=== PATIENT | female | born 1995 | race Caucasian/White ===

== ENCOUNTER 2020-11-09 14:16 | Outpatient (REF) | payer OTHER, SELFPAY ==
--- NOTE | ~2020-11-09 | XR_ITS ---
EXAMINATION: XR LUMBOSACRAL SPINE CLINICAL INFORMATION: Low back pain. COMPARISON: None TECHNIQUE: Three views of the lumbosacral spine. FINDINGS: The vertebral bodies and posterior elements are normal. The disc spaces are preserved and the vertebral alignment is normal. The paraspinal soft tissues are normal. XR/XR lumbar spine 2-3V IMPRESSION: No acute abnormalities. If pain persists, consider further evaluation with a different imaging modality such as CT or MR if clinically indicated.
== END 2020-11-09 14:17 | disposition home or self-care (01) ==
LOC: HO.HMGCX 14:16
PROVIDERS: PCP Nurse Practitioner Family; Visit Provider Nurse Practitioner Family
DX: M54.5 Low back pain (principal)
CPT/HCPCS: 72100

== ENCOUNTER 2021-01-11 12:12 | Outpatient (REF) | payer OTHER, SELFPAY ==
[2021-01-11 14:06] LABS: MANUAL DIFF FLAG NO
[2021-01-11 14:11] LABS: Basophils Percent Auto 0.5 % (0-2); Eosinophils Percent Auto 0.5 % (0-4); Hematocrit 38.2 % (37.0-47.0); Hemoglobin 12.6 g/dl (12.0-16.0); Imm Gran Abs Auto 0.01 X10*3/uL (0.00-0.03); Imm Gran Pct Auto 0.2 % (0.0-0.4); Lymphocytes Absolute Auto 1.9 X10*3/uL (1.2-4.9); Lymphocytes Percent Auto 30.3 % (20-40); Mean Platelet Volume 10.2 fL (9.4-12.3); Monocytes Absolute Auto 0.4 X10*3/uL (0.1-1.2); Monocytes Percent Auto 7.2 % (2-11); Neutrophils Absolute Auto 3.8 x10*3/uL (2.0-8.3); Neutrophils Percent Auto 61.3 % (45-73); Platelet Count 272 X10*3/uL (160-400); White Blood Count 6.1 X10*3/uL (4.8-10.8)
[2021-01-11 14:29] LABS: Appearance Urine CLOUDY; Color Urine YELLOW; Glucose Urine UA NEG (NEG); Leukocyte Esterase Urine NEG (NEG); Nitrite Urine NEG (NEG); Specific Gravity - Urine >= 1.030 (1.005-1.025); UACC Culture Trigger NO; Urine Blood TRACE (NEG); Urine Ketones NEG (NEG); Urine Protein TRACE MG/DL (NEG-TRACE)
[2021-01-11 14:43] LABS: Amorphous Sediment Urine 3+ /LPF; RBC Urine 0 /HPF (0); WBC Urine 0 /HPF (0-4)
[2021-01-11 14:52] LABS: Alanine Aminotransferase 41 U/L (0-31); Albumin Level 4.8 g/dL (3.5-5.0); Alkaline Phosphatase 65 U/L (39-117); Anion Gap 15 (12-20); Aspartate Amino Transferase 29 U/L (5-31); Bilirubin Total 0.8 mg/dL (0.0-1.0); Blood Urea Nitrogen 12 mg/dL (9-16); Calcium 9.9 mg/dL (8.4-10.2); Carbon Dioxide 24 mmol/L (22-29); Chloride 105 mmol/L (96-108); Cholesterol 207 mg/dL; Estimated Glomerular Filt Rate > 60; Glucose Fasting 83 mg/dL (60-99); HDL Cholesterol 66 mg/dL; Iron 105 mcg/dL (30-160); LDL Cholesterol Calculated 129 mg/dl; Percent Iron Saturation 32 % (15-50); Potassium 4.7 mmol/L (3.3-5.1); Sodium 139 mmol/L (135-145); Total Iron Binding Capacity 326 mcg/dL (228-428); Total Protein 8.1 g/dL (6.5-8.0); Triglycerides 62 mg/dL; Unsaturated Iron Binding 221 ug/dL
[2021-01-11 14:58] LABS: Ferritin 67 ng/mL (10-122); TSH reflex Free T4 2.36 uIU/mL (0.32-4.0)
[2021-01-11 15:13] LABS: Folate 8.5 ng/mL (> or = 4.0); Vitamin B12 513 pg/mL (200-900)
== END 2021-01-11 12:13 | disposition home or self-care (01) ==
LOC: HO.HMGCLDS 12:12
PROVIDERS: PCP Nurse Practitioner Family; Visit Provider Nurse Practitioner Family
DX: Z00.00 Encounter for general adult medical examination without abnormal findings (principal); R53.83 Other fatigue
CPT/HCPCS: 36415; 80053; 80061; 81001; 82607; 82728; 82746; 83540; 84443; 85025

== ENCOUNTER 2021-01-16 16:31 | Outpatient (REF) | payer OTHER, SELFPAY ==
[2021-01-16 17:17] LABS: Influenza A PCR NEGATIVE (Negative); Influenza B PCR NEGATIVE (Negative); Resp Syncy Virus RNA Qual PCR NEGATIVE (Negative); SARS COV2 PCR INHOUSE NEGATIVE (Negative)
== END 2021-01-16 16:32 | disposition home or self-care (01) ==
LOC: HO.LNP 16:31
PROVIDERS: Visit Provider Physician Assistant
DX: Z20.822 Contact with and (suspected) exposure to COVID-19 (principal); R05.9 Cough, unspecified
CPT/HCPCS: 0241U

== ENCOUNTER 2021-01-23 13:46 | Outpatient (REF) | payer OTHER, SELFPAY ==
[2021-01-23 16:25] LABS: Urine Cytology See Pathology rpt
[2021-01-23 16:39] LABS: Appearance Urine HAZY; Color Urine YELLOW; Glucose Urine UA NEG (NEG); Leukocyte Esterase Urine NEG (NEG); Nitrite Urine NEG (NEG); PH 7.5 (5.0-8.0); Specific Gravity - Urine 1.015 (1.005-1.025); UACC Culture Trigger NO; Urine Blood TRACE (NEG); Urine Ketones NEG (NEG); Urine Protein NEG (NEG-TRACE)
[2021-01-23 17:17] LABS: Bacteria Urine 4+ /LPF; Squamous Epithelial Cell Urine 2+ /LPF
[2021-01-24 08:07] LABS: HBS Num1 > 1000.00 mIU/mL (0-7.99); ~HepC Num1 0.19 S/CO (0.00-0.79); ~Hepatitis B Surface Antibody REACTIVE (Nonreactive); ~Hepatitis C Antibody Nonreactive (Nonreactive)
[2021-01-24 08:36] LABS: Hepatitis B Core Antibody Nonreactive (Nonreactive); Hepatitis B Surface Antigen Negative (Negative)
[2021-01-25 08:35] LABS: Hepatitis A Antibody IgM 0.21 Index (0-0.79); ~Hepatitis A Antibody IgM Nonreactive (Nonreactive)
== END 2021-01-23 13:47 | disposition home or self-care (01) ==
LOC: HO.HMGCLDS 13:46
PROVIDERS: PCP Nurse Practitioner Family; Visit Provider Nurse Practitioner Family
DX: Z00.00 Encounter for general adult medical examination without abnormal findings (principal); R31.29 Other microscopic hematuria; R74.8 Abnormal levels of other serum enzymes
CPT/HCPCS: 36415; 81001; 86704; 86706; 86709; 86803; 87086; 87340; 88112

== ENCOUNTER 2021-02-06 08:28 | Outpatient (REF) | payer OTHER, SELFPAY ==
--- NOTE | ~2021-02-06 | US_ITS ---
EXAMINATION: US ABDOMEN COMPLETE CLINICAL INFORMATION: Elevated liver enzymes. COMPARISON: None TECHNIQUE: Real-time imaging of the abdominal viscera. FINDINGS: PANCREAS: Visualized pancreatic head and body are normal in appearance. Remainder the pancreas is obscured from visualization by overlying bowel gas. ABDOMINAL AORTA: The proximal, mid, and distal segments are normal in caliber. INFERIOR VENA CAVA: Visualized portions are normal. LIVER: Liver demonstrates mild diffuse increased echogenicity with preservation of expected differentiation of periportal fat in liver parenchyma. No focal parenchymal lesions of the liver. The hepatic capsular size and contour normal in appearance. GALLBLADDER: Normal. The gallbladder is physiologically distended without evidence of stones, sludge, polyps, wall thickening or pericholecystic fluid. COMMON BILE DUCT: Normal in caliber measuring 0.2 cm in diameter. RIGHT KIDNEY: Normal. No hydronephrosis. No renal calculi or focal parenchymal lesions. The kidney measures 10.2 cm in maximum dimension. LEFT KIDNEY: Normal. No hydronephrosis. No renal calculi or focal parenchymal lesions. The kidney measures 10.5 cm in maximum dimension. SPLEEN: Normal. The spleen measures 9.9 cm in maximum dimension. FREE FLUID: None. US/US abdomen complete IMPRESSION: *The liver demonstrates mild diffusely increased mildly heterogeneous echogenicity. This is a borderline finding which in the correct clinical setting could correlate with mild diffuse hepatic steatosis or hepatitis. No focal parenchymal lesions of the liver. No evidence of capsular nodularity to suggest cirrhosis. No biliary duct dilatation. *No cholelithiasis.
== END 2021-02-06 08:29 | disposition home or self-care (01) ==
LOC: HO.HMGCX 08:28
PROVIDERS: PCP Nurse Practitioner Family; Visit Provider Nurse Practitioner Family
DX: R74.8 Abnormal levels of other serum enzymes (principal)
CPT/HCPCS: 76700

== ENCOUNTER 2021-03-28 11:49 | Outpatient (REF) | payer OTHER, SELFPAY ==
[2021-03-28 14:09] LABS: Appearance Urine TURBID; Color Urine YELLOW; Glucose Urine UA NEG (NEG); Leukocyte Esterase Urine NEG (NEG); Nitrite Urine NEG (NEG); Specific Gravity - Urine >= 1.030 (1.005-1.025); UACC Culture Trigger NO; Urine Blood TRACE (NEG); Urine Ketones NEG (NEG); Urine Protein NEG (NEG-TRACE)
[2021-03-28 14:20] LABS: Cholesterol 171 mg/dL; HDL Cholesterol 56 mg/dL; LDL Cholesterol Calculated 106 mg/dl; Triglycerides 49 mg/dL
[2021-03-28 14:24] LABS: Amorphous Sediment Urine 4+ /LPF; RBC Urine 0-2 /HPF (0); Squamous Epithelial Cell Urine TRACE /LPF; WBC Urine 0 /HPF (0-4)
== END 2021-03-28 11:50 | disposition home or self-care (01) ==
LOC: HO.HMGCLDS 11:49
PROVIDERS: PCP Nurse Practitioner Family; Visit Provider Nurse Practitioner Family
DX: R74.8 Abnormal levels of other serum enzymes (principal)
CPT/HCPCS: 36415; 80061; 81001

== ENCOUNTER 2021-04-06 09:14 | Outpatient (REF) | payer OTHER, SELFPAY ==
[2021-04-06 16:22] LABS: Urine Cytology See Pathology rpt
== END 2021-04-06 09:15 | disposition home or self-care (01) ==
LOC: HO.LAB 09:14
PROVIDERS: PCP Nurse Practitioner Family
DX: R31.29 Other microscopic hematuria (principal)
CPT/HCPCS: 87086; 88112; 99202

== ENCOUNTER 2021-04-25 13:44 | Outpatient (REF) | payer OTHER, SELFPAY ==
[2021-04-25 13:49] LABS: Urine Cytology See Pathology rpt
[2021-04-25 14:36] LABS: Appearance Urine HAZY; Color Urine YELLOW; Glucose Urine UA NEG (NEG); Leukocyte Esterase Urine NEG (NEG); Nitrite Urine NEG (NEG); PH 6.5 (5.0-8.0); Specific Gravity - Urine 1.015 (1.005-1.025); UACC Culture Trigger NO; Urine Blood TRACE (NEG); Urine Ketones NEG (NEG); Urine Protein NEG (NEG-TRACE)
[2021-04-25 14:59] LABS: Squamous Epithelial Cell Urine TRACE /LPF; WBC Urine 0-2 /HPF (0-4)
[2021-04-25 15:00] LABS: Bacteria Urine 1+ /LPF
[2021-04-25 15:02] LABS: UACC CULT NO
== END 2021-04-25 13:45 | disposition home or self-care (01) ==
LOC: HO.LNP 13:44
PROVIDERS: Visit Provider Nurse Practitioner Family
DX: Z00.00 Encounter for general adult medical examination without abnormal findings (principal); R31.29 Other microscopic hematuria
CPT/HCPCS: 81001; 81003; 88112

== ENCOUNTER → 2021-04-28 10:35 | Outpatient (BNVA) | payer OTHER, SELFPAY | PROVIDERS: PCP Nurse Practitioner Family | DX: Z13.89 Encounter for screening for other disorder (principal) ==

== ENCOUNTER 2021-06-02 15:17 | Outpatient (REF) | payer OTHER, SELFPAY ==
--- NOTE | ~2021-06-02 | US_ITS ---
EXAMINATION: US RETROPERITONEAL LIMITED (RENAL ONLY) CLINICAL INFORMATION: Other microscopic hematuria. COMPARISON: Ultrasound abdomen complete 02/06/2021 TECHNIQUE: Real-time imaging of the kidneys. FINDINGS: RIGHT KIDNEY: 10.5 x 4.2 x 4.9 cm (SAG x AP x TRV). The kidney is normal in size, contour, and echogenicity. Renal cortical thickness is normal. No calculi or focal parenchymal lesions. No hydronephrosis. LEFT KIDNEY: 11.0 x 4.0 x 4.8 cm (SAG x AP x TRV). The kidney is normal in size, contour, and echogenicity. Renal cortical thickness is normal. No calculi or focal parenchymal lesions. No hydronephrosis. US/US renal BI IMPRESSION: Unremarkable renal ultrasound..
== END 2021-06-02 15:18 | disposition home or self-care (01) ==
LOC: HO.HMGCX 15:17
DX: R31.29 Other microscopic hematuria (principal)
CPT/HCPCS: 76775

== ENCOUNTER → 2021-06-27 12:20 | Outpatient (BNVA) | payer OTHER, SELFPAY | PROVIDERS: PCP Nurse Practitioner Family | DX: Z13.89 Encounter for screening for other disorder (principal) ==

== ENCOUNTER 2022-12-11 14:47 | Outpatient (AMB) | payer OTHER, SELFPAY ==
--- NOTE | 2022-12-11 14:50 | A.OFFPC_ITS ---
Vital Signs 12/11/22 14:53 Height 5 ft 4 in Weight 141 lb BMI 24.2 BP 120/72 Blood Pressure Location Lt brachial Position Sitting Pulse 77 Pulse Source Pulse Oximeter Pulse Oximetry (%) 99 Oxygen Delivery Method Room Air Intake Visit Reasons: phy Intake Note: pt is here today for PHY Allergies latex Allergy (Mild, Verified 12/11/22 14:56) Unknown amoxicillin [AMOXICILLIN] Allergy (Unknown, Verified 12/11/22 14:56) HIVES, rash, Rash penicillin V Allergy (Unknown, Verified 12/11/22 14:56) rash Medication List - Last Reconciled 12/11/22 by VAUGHN HowardP-LONNIE mupirocin 2% 1 appl topical BID Tobacco use date assessed: 12/11/22 Dental Screening Dental Screen Date: 12/11/22 Did you have a dental visit in the last 12 months?: Yes Did you have a dental problem in the last 6 months where you did not have access to dental care?: No Was dental information given to patient?: Patient has dentist HPI phy HPI Details Pt is here for a PE. Will order labs. Has a cnc machine programmer. Pt recently had an ectopic . reports folliculitis to her buttocks region. Will start mupirocin cream. Hx of anemia: will check iron/ferritin [facility] Medical History Anxiety Constipation Microscopic hematuria Surgical History History of surgery Social History Housing: House Patient Tobacco Use Status: Never used Tobacco e-Cigarette/Vaping Use: Never Used Second Hand Smoke Exposure: Yes service: No Current occupational status: employed Current occupation: [employer] Current occupational exposures/hazards: Yes Questionnaire PHQ-9 Over the last 2 weeks, how often have you been bothered by any of the following problems? 1. Little interest or pleasure in doing things: not at all 2. Feeling down, depressed, or hopeless: not at all 3. Trouble falling or staying asleep, or sleeping too much: more than half the days 4. Feeling tired or having little energy: more than half the days 5. Poor appetite or overeating: not at all 6. Feeling bad about yourself - or that you are a failure or have let yourself or your family down: not at all 7. Trouble concentrating on things, such as reading the newspaper or watching television: not at all 8. Moving or speaking so slowly that other people could have noticed. Or the opposite - being so fidgety or restless that you have been moving around a lot more than usual: not at all 9. Thoughts that you would be better off or of hurting yourself in some way: not at all Total score: 4 Source: Developed by Drs. Caleb Fabian, Kareen Mary, Jacky Stewart and colleagues, with an educational sapphire from [employer]. Thrive Questionnaire Date Thrive assessed: 12/11/22 I am a: Patient What is your living situation today?: I have a steady place to live Within the past 12 months, did the food you bought not last and you didn't have the money to get more?: Never true Within the past 12 months, did you worry whether your food would run out before you got money to buy more?: Never true Do you have trouble paying for medicines?: No Do you have trouble getting transportation to medical appointments?: No Do you have trouble paying your heating and electricity bill?: No Do you have trouble taking care of your child, family member or friend?: No Do you have trouble with day-to-day activities such as bathing, preparing meals, shopping, managing finances, etc.?: No Are you currently unemployed and looking for a job?: No Are you interested in more education?: No AUDIT C Alcohol Use Questionnaire (AUDIT-C) 1. How often do you have a drink containing alcohol?: Monthly or less 2. How many drinks containing alcohol do you have on a typical day when you are drinking?: 1 or 2 Total Score: 1 SANDRA-7 AMB Questionnaire SANDRA-7 Date SANDRA - 7 assessed: 12/11/22 Feeling nervous, anxious, or on edge: 0 = Not at all Not being able to stop or control worryin = Not at all Worrying too much about different things: 0 = Not at all Trouble relaxin = Not at all Being so restless that it is hard to sit still: 0 = Not at all Becoming easily annoyed or irritable: 0 = Not at all Feeling afraid as if something awful might happen: 0 = Not at all Total SANDRA-7 score (0-4 normal; 5-9 mild; 10-14 moderate; 15-21 severe): 0 Source: Developed by Drs. Caleb Fabian, Kareen Mary, Jacky Stewart and colleagues, with an educational sapphire from [employer]. Review of Systems Const Denies chills and Denies fever(s) Eyes Denies blurry vision ENT Denies vertigo, Denies dizziness and Denies sore throat Card Denies chest pain at rest, Denies chest pain with activity, Denies diaphoresis, Denies dyspnea and Denies dyspnea on exertion Resp Denies cough, Denies dyspnea, Denies dyspnea on exertion and Denies wheezing GI Denies abdominal pain, Denies melena, Denies hematochezia, Denies constipation, Denies diarrhea and Denies loose stools Denies hematuria Musc Denies numbness and Denies tingling Skin/Breast Denies lesions Neuro Denies vertigo, Denies dizziness, Denies numbness and Denies tingling Psych Denies anxiety, Denies depression, Denies homicidal ideation, Denies suicidal ideation and Denies other (substance abuse) Aller/Immun Denies wheezing Physical exam (Primary Care) Vital Signs: Last Vital Signs Pulse 77 12/11/22 14:53 BP 120/72 12/11/22 14:53 Pulse Ox 99 12/11/22 14:53 Oxygen Delivery Method Room Air 12/11/22 14:53 BMI result Body Mass Index 24.2 Tobacco/Smoking Status: Tobacco use Status Tobacco use date assessed 12/11/22 12/11/22 14:57 Patient Tobacco Use Status Never used Tobacco 12/11/22 14:57 e-Cigarette/Vaping Use Never Used 12/11/22 14:57 Thrive Assessment: Date of Thrive Assessment Date Thrive assessed 11/09/20 12/11/22 14:57 Const General: cooperative Nutritional Appearance: well nourished Orientation/consciousness: patient oriented x3 HENMT Head: Yes normal to inspection, Yes normocephalic and Yes atraumatic Ears: TM's normal bilaterally Eyes General: appearance normal, both eyes and all related structures Alignment and Position: alignment normal and position normal Neck Neck: Yes normal visual inspection and Yes no lymphadenopathy Thyroid: Thyroid normal Resp Effort & Inspection: normal respiratory effort Auscultation: clear to auscultation bilaterally Cardio Rate: regular rate Rhythm: regular rhythm Heart sounds: S1 normal heart sound present, S2 normal heart sound present and no murmurs GI Palpation (GI): Soft to palpation and nontender Auscultation: normal bowel sounds Skin Rashes: no rashes Neuro General: patient oriented x3, moves all extremities, no focal motor deficits and deep tendon reflexes 2+ bilaterally Romberg Test: Negative Psych Appearance: grossly normal Mental Status: mental status grossly normal Speech and movement: Normal speech and movement present Affect: normal affect Attitude: cooperative Thought process: Normal thought process present Thought content: Normal thought content present Insight: Good insight present (Psych) Judgement: Good judgement present (Psych) Assessment and Plan Assessment & Plan (1) Physical exam: Code(s): Z00.00 - Encounter for general adult medical examination without abnormal findings Plan: Labs ordered (2) Anemia: Code(s): D64.9 - Anemia, unspecified Plan: Labs ordered Plan The patient agreed to the use of a medical assistant ob gyn for this encounter. Scribed for JAMSHID Aranda by Kelsy Prasad medical assistant ob gyn, on 12/11/2022 at 15:00 EST. Orders: Orders Complete Blood Count Auto Diff Today Z00.00 - Encounter for general adult medical examination without abnormal findings TSH reflex Free T4 Today Z00.00 - Encounter for general adult medical examination without abnormal findings UA CC w/rflx Micro + Cult Today Z00.00 - Encounter for general adult medical examination without abnormal findings IRON PROFILE Today D64.9 - Anemia, unspecified Comprehensive [place]. Panel Fast Today Z00.00 - Encounter for general adult medical examination without abnormal findings Lipid Panel Today Z00.00 - Encounter for general adult medical examination without abnormal findings Ferritin Today D64.9 - Anemia, unspecified Medications: New mupirocin 2% 1 appl topical BID 50 grams 0RF Coding Level of Care Code Est Pt Prev Care 18-39y(17083) Diagnoses Physical exam Z00.00 Anemia D64.9
[2022-12-11 14:53] VITALS: BP 120/72; PULSE 77; O2SAT 99; BMI 24.2
== END 2022-12-11 15:37 | disposition home or self-care (01) ==
PROVIDERS: Visit Provider Nurse Practitioner Family
DX: Z00.00 Encounter for general adult medical examination without abnormal findings (principal); D64.9 Anemia, unspecified
CPT/HCPCS: 99395

== ENCOUNTER 2023-11-14 15:30 | Outpatient (AMB) | payer OTHER, SELFPAY ==
--- NOTE | 2023-11-14 15:32 | MHC.PC.OV ---
Vital Signs 11/14/23 15:35 Height 5 ft 4 in Weight 149 lb 2 oz BMI 25.6 BP 118/68 Blood Pressure Location Lt brachial Position Sitting Pulse 84 Pulse Source Pulse Oximeter Pulse Oximetry (%) 98 Intake Visit Reasons: ED F/u pneumonia Intake Note: pt is here for ed f/up regarding pneumonia Corporation Secretary Required: No Accompanied by: Self / Same As Patient Allergies latex Allergy (Mild, Verified 11/14/23 17:06) Unknown amoxicillin [AMOXICILLIN] Allergy (Unknown, Verified 11/14/23 17:06) HIVES, rash, Rash penicillin V Allergy (Unknown, Verified 11/14/23 17:06) rash Medication List - Last Reconciled 11/14/23 by YEE Howard-LONNIE albuterol sulfate 90 mcg/actuation 1 inh inhalation QID PRN Tobacco use date assessed: 11/14/23 Dental Screening Dental Screen Date: 11/14/23 Did you have a dental visit in the last 12 months?: Yes Did you have a dental problem in the last 6 months where you did not have access to dental care?: No Was dental information given to patient?: Patient has dentist HPI ED F/u pneumonia HPI Details Pt was seen in the ER on 10/09 c/o fever and cough. Chest XR showed right lower lobe pneumonia. She was given doxycycline, cefpodoxime, and a rescue inhaler. Pt reports doing better today. She does have a residual cough. Will repeat chest XR. Pt previously had genital lesions. She was treated with valcyclovir. She reports having a culture that was negative for herpes, will check IGG. She denies any current lesions. denies any SOB, fevers, chills, n/v, fatigue. [facility] Medical History Pneumonia Microscopic hematuria Constipation Anxiety Surgical History History of surgery Social History Housing: House Patient Tobacco Use Status: Never used Tobacco e-Cigarette/Vaping Use: Never Used Second Hand Smoke Exposure: Yes service: No Current occupational status: employed Current occupation: [employer] Current occupational exposures/hazards: Yes Cognitive needs: No Hearing needs: No Vision needs: No Questionnaire PHQ-9 Over the last 2 weeks, how often have you been bothered by any of the following problems? 1. Little interest or pleasure in doing things: not at all 2. Feeling down, depressed, or hopeless: not at all 3. Trouble falling or staying asleep, or sleeping too much: more than half the days 4. Feeling tired or having little energy: more than half the days 5. Poor appetite or overeating: not at all 6. Feeling bad about yourself - or that you are a failure or have let yourself or your family down: not at all 7. Trouble concentrating on things, such as reading the newspaper or watching television: not at all 8. Moving or speaking so slowly that other people could have noticed. Or the opposite - being so fidgety or restless that you have been moving around a lot more than usual: not at all 9. Thoughts that you would be better off or of hurting yourself in some way: not at all Total score: 4 Depression Screening Interpretation: Negative Depression Screening Done: Yes 91786 - PHQ-9 Billing: Yes Source: Developed by Drs. Caleb Fabian, Kareen Mary, Jacky Stewart and colleagues, with an educational sapphire from [employer]. Thrive Questionnaire Date Thrive assessed: 11/14/23 I am a: Patient What is your living situation today?: I have a steady place to live Within the past 12 months, did the food you bought not last and you didn't have the money to get more?: Never true Within the past 12 months, did you worry whether your food would run out before you got money to buy more?: Never true Do you have trouble paying for medicines?: No Do you have trouble getting transportation to medical appointments?: No Do you have trouble paying your heating and electricity bill?: No Do you have trouble taking care of your child, family member or friend?: No Do you have trouble with day-to-day activities such as bathing, preparing meals, shopping, managing finances, etc.?: No Are you currently unemployed and looking for a job?: No Are you interested in more education?: No Please select the resources that you would like help with: None Currently or been in a relationship where the following occur: No concerns reported THRIVE Score: 0 AUDIT C Alcohol Use Questionnaire (AUDIT-C) 1. How often do you have a drink containing alcohol?: Monthly or less 2. How many drinks containing alcohol do you have on a typical day when you are drinking?: 1 or 2 Total Score: 1 Score Reviewed/Action Taken: Yes SANDRA-7 AMB Questionnaire SANDRA-7 Date SANDRA - 7 assessed: 11/14/23 Feeling nervous, anxious, or on edge: 0 = Not at all Not being able to stop or control worryin = Not at all Worrying too much about different things: 0 = Not at all Trouble relaxin = Not at all Being so restless that it is hard to sit still: 0 = Not at all Becoming easily annoyed or irritable: 0 = Not at all Feeling afraid as if something awful might happen: 0 = Not at all Total SANDRA-7 score (0-4 normal; 5-9 mild; 10-14 moderate; 15-21 severe): 0 Source: Developed by Drs. Caleb Fabian, Kareen Mary, Jacky Stewart and colleagues, with an educational sapphire from [employer]. SANDRA-7 Assessment Billing SANDRA-7 Assessment Tool: SANDRA-7 Assessment 32121 Review of Systems Const Reports as per HPI Physical exam (Primary Care) Vital Signs: Last Vital Signs Pulse 84 11/14/23 15:35 BP 118/68 11/14/23 15:35 Pulse Ox 98 11/14/23 15:35 BMI result Body Mass Index 25.6 Tobacco/Smoking Status: Tobacco use Status Tobacco use date assessed 11/14/23 11/14/23 15:36 Patient Tobacco Use Status Never used Tobacco 11/14/23 15:36 e-Cigarette/Vaping Use Never Used 11/14/23 15:36 PHQ-9: PHQ-9 Score PHQ-9: Total score 4 11/14/23 15:46 Depression Screening Interpretation: Negative Thrive Assessment: Date of Thrive Assessment Date Thrive assessed 11/14/23 11/14/23 15:36 Currently or been in a relationship where the following occur: No concerns reported Const General: cooperative Orientation/consciousness: patient oriented x3 Resp Effort & Inspection: normal respiratory effort Auscultation: clear to auscultation bilaterally Cardio Rate: regular rate Rhythm: regular rhythm Heart sounds: S1 normal heart sound present and S2 normal heart sound present Neuro General: patient oriented x3 Psych Appearance: grossly normal Mental Status: mental status grossly normal Speech and movement: Normal speech and movement present Affect: normal affect Attitude: cooperative Thought process: Normal thought process present Thought content: Normal thought content present Insight: Good insight present (Psych) Judgement: Good judgement present (Psych) Coding Level of Care Code Est Pt Level 3 (64931) Diagnoses Screening for STDs (sexually transmitted diseases) Z11.3 Pneumonia J18.9 Additional Codes SANDRA-7 Assessment Billing - SANDRA-7 Assessment Tool: SANDRA-7 Assessment [id number] ([id number]) Assessment & Plan Assessment & Plan (1) Screening for STDs (sexually transmitted diseases): Code(s): Z11.3 - Encounter for screening for infections with a predominantly sexual mode of transmission Category: Medical Plan: Testing ordered (2) Pneumonia: Code(s): J18.9 - Pneumonia, unspecified organism Category: Medical Plan: Repeat chest XR ordered Plan The patient agreed to the use of a medical educator for this encounter. Scribed for MESSI Aranda by Kelsy Prasad medical educator, on 11/14/2023 at 15:45 EST. Orders: Orders XR chest 2V Today J18.9 - Pneumonia, unspecified organism Herpes Simplex Virus Ab IgG Today Z11.3 - Encounter for screening for infections with a predominantly sexual mode of transmission
[2023-11-14 15:35] VITALS: BP 118/68; PULSE 84; O2SAT 98; BMI 25.6
== END 2023-11-14 17:04 | disposition home or self-care (01) ==
PROVIDERS: PCP Nurse Practitioner Family; Visit Provider Nurse Practitioner Family
DX: Z11.3 Encounter for screening for infections with a predominantly sexual mode of transmission (principal); J18.9 Pneumonia, unspecified organism

== ENCOUNTER → 2023-11-14 15:30 | Outpatient (BNVA) | payer OTHER, SELFPAY | PROVIDERS: PCP Nurse Practitioner Family; Visit Provider Nurse Practitioner Family ==

== ENCOUNTER 2023-11-14 16:05 | Outpatient (REF) | payer OTHER, SELFPAY ==
--- NOTE | ~2023-11-14 | XR_ITS ---
EXAMINATION: XR CHEST 2 VIEWS CLINICAL INFORMATION: Pneumonia, unspecified organism J18.9. COMPARISON: XR Chest 08/12/2015 (report only). TECHNIQUE: 2 views of the chest were obtained. FINDINGS: No significant abnormality is noted involving the heart, lungs, mediastinum, bony thorax or soft tissues. XR/XR chest 2V IMPRESSION: Normal chest PA and lateral. Electronically signed by: Bipin Orona MD 01/27/2024 09:41 AM [facility]
== END 2023-11-14 16:06 | disposition home or self-care (01) ==
LOC: HO.HMGCX 16:05
PROVIDERS: PCP Nurse Practitioner Family; Visit Provider Nurse Practitioner Family
DX: J18.9 Pneumonia, unspecified organism (principal)
CPT/HCPCS: 71046; 96127; 99212

== ENCOUNTER 2023-11-15 12:08 | Outpatient (REF) | payer OTHER, SELFPAY ==
[2023-11-15 13:03] LABS: MANUAL DIFF FLAG NO
[2023-11-15 13:12] LABS: Basophils Percent Auto 0.4 % (0-2); Eosinophils Percent Auto 0.7 % (0-4); Hematocrit 35.7 % (37.0-47.0); Imm Gran Abs Auto 0.02 X10*3/uL (0.00-0.03); Imm Gran Pct Auto 0.4 % (0.0-0.4); Lymphocytes Absolute Auto 1.9 X10*3/uL (1.2-4.9); Mean Corpuscular HGB Conc 33.6 g/dl (31.0-35.0); Mean Corpuscular Hemoglobin 31.3 pg (27.0-33.0); Monocytes Absolute Auto 0.4 X10*3/uL (0.1-1.2); Monocytes Percent Auto 7.8 % (2-11); Neutrophils Absolute Auto 3.1 x10*3/uL (2.0-8.3); Neutrophils Percent Auto 55.7 % (45-73); Platelet Count 258 X10*3/uL (160-400); Red Blood Count 3.84 X10*6/uL (4.20-5.50); Red Cell Distribution Width 13.2 % (11.0-16.0); White Blood Count 5.5 X10*3/uL (4.8-10.8)
[2023-11-15 13:14] LABS: Appearance Urine Clear; Color Urine Yellow; Glucose Urine UA Negative (Negative); Leukocyte Esterase Urine Negative (Negative); Nitrite Urine Negative (Negative); PH 5.5 (5.0-9.0); Specific Gravity - Urine 1.025 (1.005-1.025); Urine Blood Negative (Negative); Urine Ketones Negative (Negative); Urine Protein Negative (Neg-Trace)
[2023-11-15 14:09] LABS: Alanine Aminotransferase 12 U/L (0-31); Albumin Level 4.6 g/dL (3.5-5.0); Alkaline Phosphatase 56 U/L (39-117); Anion Gap 11 (12-20); Aspartate Amino Transferase 13 U/L (5-31); Bilirubin Total 0.7 mg/dL (0.0-1.0); Blood Urea Nitrogen 9 mg/dL (9-16); Calcium 9.4 mg/dL (8.4-10.2); Carbon Dioxide 25 mmol/L (22-29); Chloride 109 mmol/L (96-108); Cholesterol 174 mg/dL (<200); Estimated Glomerular Filt Rate > 60; Glucose Fasting 86 mg/dL (60-99); HDL Cholesterol 58 mg/dL (>40); Iron 77 mcg/dL (30-160); LDL Cholesterol Calculated 108 mg/dL (<100); Percent Iron Saturation 27 % (15-50); Potassium 4.1 mmol/L (3.3-5.1); Sodium 141 mmol/L (135-145); Total Iron Binding Capacity 288 mcg/dL (228-428); Total Protein 7.9 g/dL (6.5-8.0); Triglycerides 44 mg/dL (<150); Unsaturated Iron Binding 211 ug/dL
[2023-11-15 14:38] LABS: Ferritin 64 ng/mL (10-122); TSH reflex Free T4 2.12 uIU/mL (0.32-4.0)
[2023-11-18 18:22] LABS: Herpes Simplex Type 2 IgG <0.90 index
== END 2023-11-15 12:09 | disposition home or self-care (01) ==
LOC: HO.HMGCLDS 12:08
PROVIDERS: PCP Nurse Practitioner Family; Visit Provider Nurse Practitioner Family
DX: Z00.00 Encounter for general adult medical examination without abnormal findings (principal); D64.9 Anemia, unspecified; Z11.3 Encounter for screening for infections with a predominantly sexual mode of transmission
CPT/HCPCS: 36415; 80053; 80061; 81003; 82728; 83540; 84443; 85025; 86695; 86696

== ENCOUNTER 2024-07-27 11:02 | Outpatient (AMB) | payer OTHER, SELFPAY ==
--- NOTE | 2024-07-27 11:05 | A.OFFPC_ITS ---
Vital Signs 07/27/24 11:12 Height 5 ft 4 in Weight 157 lb 8 oz BMI 27.0 BP 104/68 Blood Pressure Location Rt brachial Position Sitting Pulse 80 Temp 98.1 F Temp Source Oral Pulse Oximetry (%) 100 Oxygen Delivery Method Room Air Intake Visit Reasons: ANNUAL EXAM Allergies latex Allergy (Mild, Verified 07/27/24 11:12) Unknown amoxicillin [AMOXICILLIN] Allergy (Unknown, Verified 07/27/24 11:12) HIVES, rash, Rash penicillin V Allergy (Unknown, Verified 07/27/24 11:12) rash Medication List - Last Reconciled 07/27/24 by Syed Nj, [employer]- albuterol sulfate 90 mcg/actuation 1 inh inhalation QID PRN Tobacco use date assessed: 07/27/24 Dental Screening Dental Screen Date: 07/27/24 Did you have a dental visit in the last 12 months?: Yes Did you have a dental problem in the last 6 months where you did not have access to dental care?: No Was dental information given to patient?: Patient has dentist HPI ANNUAL EXAM HPI Details History of Present Illness The patient is a 29-year-old female presenting with a physical exam. She reports experiencing fatigue but denies arthralgias or myalgias. She has a family history of lupus, with her mother and younger sister diagnosed with the condition. The patient also reports constipation for which she uses MiraLax. Dietary modifications and walking have been attempted to alleviate symptoms. A potential treatment with Linzess was discussed, and she will consider contacting via portal if interested. Health Maintenance will find her own REJOGGER Social History - Relocating to [place] but kraig nues medical treatments locally - Recent breakup with boyfriend Review of Systems - General: Reports fatigue - Musculoskeletal: Denies arthralgias or myalgias - Cardiovascular: Denies chest pain - Respiratory: Denies dyspnea - Gastrointestinal: Reports constipation ; denies abdominal pain, blood in stool, diarrhea Physical Exam General: Cooperative, healthy appearing, comfortable, no acute distress and well developed Orientation: Patient oriented x3 Limitations: No limitations Head: Normal to inspection Ears: Hearing grossly normal bilaterally Nose: Normal external nose present Face and sinus: Normal facial exam Eyes: Appearance normal, both eyes and all related structures Neck: Normal visual inspection and Yes full ROM Respiratory: Normal respiratory effort and able to speak in complete sentences. Clear to auscultation bilaterally Cardiovascular: Regular rate and rhythm. Normal S1 and S2 GI: Normal to inspection. Soft to palpation and nontender. Reports constipation and uses MiraLax Skin: No rashes or lesions noted Neuro: Patient oriented x3 Extremities: Normal to inspection Results Plan The patient will undergo laboratory tests to evaluate for lupus due to her family history and reported fatigue. A referral to rheumatology may be considered based on the results. For constipation, dietary modifications and physical activity have been recommended. The use of Linzess was discussed as a potential treatment option, and the patient will contact via portal if interested. Discussion Notes I discussed with the patient the possibility of lupus given her family history and symptoms, and we agreed to proceed with laboratory testing. We also talked about the option of Linzess for her constipation, and she will let me know if she wants to try it. Patient Instructions - Follow up with laboratory tests for gustavo pus evaluation. - Consider dietary changes and walking t o help with constipation. - Contact via portal if interested in roz [facility] To. [facility] Medical History (Updated 07/27/24 @ 11:58 by YEE Howard-LONNIE) Pneumonia Microscopic hematuria Constipation Anxiety Surgical History History of surgery Social History Housing: House Patient Tobacco Use Status: Never used Tobacco e-Cigarette/Vaping Use: Never Used Second Hand Smoke Exposure: Yes service: No Current occupational status: employed Current occupation: [employer] Current occupational exposures/hazards: Yes Cognitive needs: No Hearing needs: No Vision needs: No Questionnaire PHQ-9 Over the last 2 weeks, how often have you been bothered by any of the following problems? 1. Little interest or pleasure in doing things: not at all 2. Feeling down, depressed, or hopeless: not at all 3. Trouble falling or staying asleep, or sleeping too much: not at all 4. Feeling tired or having little energy: not at all 5. Poor appetite or overeating: not at all 6. Feeling bad about yourself - or that you are a failure or have let yourself or your family down: not at all 7. Trouble concentrating on things, such as reading the newspaper or watching television: not at all 8. Moving or speaking so slowly that other people could have noticed. Or the opposite - being so fidgety or restless that you have been moving around a lot more than usual: not at all 9. Thoughts that you would be better off or of hurting yourself in some way: not at all Total score: 0 Depression Screening Interpretation: Negative Depression Screening Done: Yes 46606 - PHQ-9 Billing: Yes Source: Developed by Drs. Caleb Fabian, Kareen Mary, Jacky Stewart and colleagues, with an educational sapphire from [employer]. Thrive Questionnaire Date Thrive assessed: 07/27/24 I am a: Patient What is your living situation today?: I have a steady place to live Within the past 12 months, did the food you bought not last and you didn't have the money to get more?: Never true Within the past 12 months, did you worry whether your food would run out before you got money to buy more?: Never true Do you have trouble paying for medicines?: No Do you have trouble getting transportation to medical appointments?: No Do you have trouble paying your heating and electricity bill?: No Do you have trouble taking care of your child, family member or friend?: No Do you have trouble with day-to-day activities such as bathing, preparing meals, shopping, managing finances, etc.?: No Are you currently unemployed and looking for a job?: Yes Are you interested in more education?: No Please select the resources that you would like help with: None Currently or been in a relationship where the following occur: No concerns reported THRIVE Score: 0 AUDIT C Alcohol Use Questionnaire (AUDIT-C) 1. How often do you have a drink containing alcohol?: 2-4 times a month Total Score: 2 SANDRA-7 AMB Questionnaire SANDRA-7 Date SANDRA - 7 assessed: 07/27/24 Feeling nervous, anxious, or on edge: 0 = Not at all Not being able to stop or control worryin = Not at all Worrying too much about different things: 0 = Not at all Trouble relaxin = Not at all Being so restless that it is hard to sit still: 0 = Not at all Becoming easily annoyed or irritable: 0 = Not at all Feeling afraid as if something awful might happen: 0 = Not at all Total SANDRA-7 score (0-4 normal; 5-9 mild; 10-14 moderate; 15-21 severe): 0 Source: Developed by Drs. Caleb Fabian, aKreen Mary, Jacky Stewart and colleagues, with an educational sapphire from [employer]. Physical exam (Primary Care) Vital Signs: Last Vital Signs Temp 98.1 F 07/27/24 11:12 Pulse 80 07/27/24 11:12 BP 104/68 07/27/24 11:12 Pulse Ox 100 07/27/24 11:12 Oxygen Delivery Method Room Air 07/27/24 11:12 BMI result Body Mass Index 27.0 Tobacco/Smoking Status: Tobacco use Status Tobacco use date assessed 07/27/24 07/27/24 11:07 Patient Tobacco Use Status Never used Tobacco 07/27/24 11:07 e-Cigarette/Vaping Use Never Used 07/27/24 11:07 PHQ-9: PHQ-9 Score PHQ-9: Total score 0 07/27/24 11:15 Depression Screening Interpretation: Negative Thrive Assessment: Date of Thrive Assessment Date Thrive assessed 07/27/24 07/27/24 11:15 Currently or been in a relationship where the following occur: No concerns reported Coding Level of Care Code Est Pt Prev Care 18-39y(09589) Diagnoses Physical exam Z00.00 Family history of systemic lupus erythematosus (SLE) in mother Z82.69 Constipation K59.00 Additional Codes PHQ-9 - 46865 - PHQ-9 Billing: Yes ([id number]) Assessment & Plan Assessment & Plan (1) Physical exam: Code(s): Z00.00 - Encounter for general adult medical examination without abnormal findings Category: Medical (2) Family history of systemic lupus erythematosus (SLE) in mother: Comment: mother and sister Code(s): Z82.69 - Family history of other diseases of the musculoskeletal system and connective tissue Category: Medical (3) Constipation: Code(s): K59.00 - Constipation, unspecified Category: Medical Plan . Orders: Orders DNA Double Stranded-Crithidia Today Z82.69 - Family history of other diseases of the musculoskeletal system and connective tissue Cyclic Citrullinated Peptide Today Z82.69 - Family history of other diseases of the musculoskeletal system and connective tissue Complement C4 Today Z82.69 - Family history of other diseases of the musculoskeletal system and connective tissue Complete Blood Count Auto Diff Today Z00.00 - Encounter for general adult medical examination without abnormal findings Comprehensive [place]. Panel Fast Today Z00.00 - Encounter for general adult medical examination without abnormal findings MARIANELA Reflex Titer and Pattern Today Z82.69 - Family history of other diseases of the musculoskeletal system and connective tissue Anti DNA DS Antibody Today Z82.69 - Family history of other diseases of the musculoskeletal system and connective tissue Rheumatoid Factor Today Z82.69 - Family history of other diseases of the musculoskeletal system and connective tissue Tick-borne Disease Molecular Today Z82.69 - Family history of other diseases of the musculoskeletal system and connective tissue Lyme IgG/IgM w/reflex to WB Today Z82.69 - Family history of other diseases of the musculoskeletal system and connective tissue Complement C3 Today Z82.69 - Family history of other diseases of the musculoskeletal system and connective tissue TSH reflex Free T4 Today Z00.00 - Encounter for general adult medical examination without abnormal findings UA CC w/rflx Micro + Cult Today Z00.00 - Encounter for general adult medical examination without abnormal findings Lipid Panel Today Z00.00 - Encounter for general adult medical examination without abnormal findings
[2024-07-27 11:12] VITALS: BP 104/68; PULSE 80; TEMP 36.7; O2SAT 100; BMI 27.0
--- OUTSIDE RECORDS SUMMARY | 2024-07-27 12:36 | XMS_ITS | Data Portability ---
Author Organization [facility], [address] Address [address] [place] [address] Assessment No assessment recorded. Plan of Treatment Reminders Order Date Submit Date Provider Last Modified By Organization Details Last Modified Time Details Appointments None recorded. Lab herpes simplex, culture, unspecified specimen 2023 024 [place] [facility]), [address] [place], [address], 4 22:05:44 vaginal pathogens panel, BETH+probe, vaginal fluid 2023 024 [place] [facility]), [address] [place], [address], 4 06:07:33 SARS CoV 2 (COVID-19) Ag, QL, IA, upper respiratory specimen 2023 [email or web address] [facility], [address] [place] [address], [address], 4 13:10:14 rapid flu (A+B) 2023 024 [email or web address] 247 _isa [facility], [address] [place] [address], [address], 4 13:10:15 urinalysis, dipstick 2023 024 [email or web address] 247 _isa [facility], [address] [place] [address], [address], 13:10:17 test, urine 2023 anh [email or web address] [address], [address] [place], [address], 13:10:18 Referral None recorded. Procedures None recorded. Surgeries None recorded. Imaging None recorded. Medication Orders valacyclovi r 1 gram tablet 2023 [id number], [address] [facility], [place], [address], 13:28:13 benzonatate 200 mg capsule 2023 [id number], [address] [facility], [place], [address], 13:28:14 Patient TargetsNo targets recorded. Patient Instructions Encounter Date Encounter Id Patient Instructions Last Modified By Organization Details Last Modified Time 02/12/2023 [id number] bronchitis: care instructions [email or web address] Not available 02/12/2023 17:04:08 10/08/2023 [id number] genital herpes: care instructions [email or web address] Not available 10/08/2023 13:28:08 female genital herpes education [email or web address] Not available 10/08/2023 13:28:08 You can take ove r the counter tylenol or ibuprofen per package instructions for the pain and fever. See printed instructions. Follow-up with your doctor if no improvement in 1 week. Seek Emergency Medical evaluation for any worsening symptoms. [email or web address] Not available 10/08/2023 13:28:05 Reason for Referral None Reported. Results Created Date Observation Date Name Description Value Unit Range Abnormal Flag Note LastModifiedBy Organization Detail LastModifiedTime 10/08/19 24 10/09/2023 NUSWA B VAGIN ITIS PLUS (VG+) atopobium vaginae LOW - 0 score Not Available [facility] ([facility]) [address], [place], [address], 10/11/2023 06:07:33 10/08/19 24 10/09/2023 NUSWA B VAGIN ITIS PLUS (VG+) bvab 2 LOW - 0 score Not Available [facility] ([facility]) [address], [place], [address], 10/11/2023 06:07:33 10/08/19 24 10/09/2023 NUSWA B VAGIN ITIS PLUS (VG+) megasphaera 1 LOW - 0 score Calcu late total score by irineo garcia the 3 indiv idual bacte rial vagin osis (BV) marke r score s toget her. Total score is inter prete d as follo ws: Total score 0-1: Indic ates the absen ce of BV. Total score 2: Indet ermin ate for BV. Addit ional clini daniel data shoul d be evalu ated to estab carolina a diagn osis. Total score 3-6: Indic ates the prese nce of BV. Not Available [facility] ([facility]) [address], [place], [address], 10/11/2023 06:07:33 10/08/19 24 10/09/2023 NUA B VAGIN ITIS PLUS (VG+) christin albicans, BETH NEGATI VE negati ve Not Available [facility] ([facility]) [address], [place], [address], 10/11/2023 06:07:33 10/08/19 24 10/09/2023 NUSWA B VAGIN ITIS PLUS (VG+) christin glabrata, BETH NEGATI VE negati ve Not Available [facility] ([facility]) [address], [place], [address], 10/11/2023 06:07:33 10/08/19 24 10/10/2023 NUSWA B VAGIN ITIS PLUS (VG+) trich vag by BETH NEGATI VE negati ve Not Available [facility] ([facility]) [address], [place], [address], 10/11/2023 06:07:33 10/08/19 24 10/11/2023 NUSWA B VAGIN ITIS PLUS (VG+) chlamydia trachomatis, BETH NEGATI VE negati ve Not Available [facility] ([facility]) [address], [place], [address], 10/11/2023 06:07:33 10/08/19 24 10/11/2023 NUSWA B VAGIN ITIS PLUS (VG+) neisseria gonorrhoeae, BETH NEGATI VE negati ve Not Available [facility] ([facility]) [address], [place], [address], 10/11/2023 06:07:33 10/08/19 24 10/12/2023 HSV CULTU RE AND TYPIN G hsv culture/type COMMEN T Negat jaye No Herpe s simpl ex virus isola rogelio. Not Available [facility] ([facility]) [address], [place], [address], 10/12/2023 22:05:44 10/08/19 24 10/08/2023 urina lysis , dipst ick Unknown Analyte Dark Yellow Not Available [facility] [address] [address] [place], [address], 10/08/2023 12:39:04 10/08/19 24 10/08/2023 urina lysis , dipst ick Unknown Analyte Cloudy Not Available [facility] [address] [address] [facility] [place], [address], 10/08/2023 12:39:04 10/08/19 24 10/08/2023 urina lysis , dipst ick Unknown Analyte Negati ve Not Available [facility] [address] [address] [place], [address], 10/08/2023 12:39:04 10/08/19 24 10/08/2023 urina lysis , dipst ick Unknown Analyte Small Not Available isa [address], [place], [address], 10/08/2023 12:39:04 10/08/19 24 10/08/2023 urina lysis , dipst ick Unknown Analyte >=160 mg/dL Not Available [facility] [address] [place], [address], 10/08/2023 12:39:04 10/08/1910/08/2023 urina lysis , dipst ick Unknown Analyte 1.020 Not Available [address] [place], [address], 10/08/2023 12:39:04 10/08/19 24 10/08/2023 urina lysis , dipst ick Unknown Analyte Modera te Not Available [facility] [address], [place], [address], 10/08/2023 12:39:04 10/08/19 24 10/08/2023 urina lysis , dipst ick Unknown Analyte 6.5 Not Available [address] [place], [address], 10/08/2023 12:39:04 10/08/19 24 10/08/2023 urina lysis , dipst ick Unknown Analyte 30 mg/dL Not Available [facility] [address] [place], [address], 10/08/2023 12:39:04 10/08/19 24 10/08/2023 urina lysis , dipst ick Unknown Analyte 1.0 E.U./d L Not Available [facility] [address], [place], [address], 10/08/2023 12:39:04 10/08/19 24 10/08/2023 urina lysis , dipst ick Unknown Analyte Negati ve Not Available pam zurita [address], [place], [address], 10/08/2023 12:39:04 10/08/19 24 10/08/2023 urina lysis , dipst ick Unknown Analyte Trace Not Available isa [address] [place], [address], 10/08/2023 12:39:04 10/08/19 24 10/08/2023 pregn mayito test, urine Unknown Analyte negati ve Not Available pam zurita [address] [place], [address], 10/08/2023 12:39:09 10/08/19 24 10/08/2023 pregn mayito test, urine Unknown Analyte yes Not Available isa [address] [place], [address], 10/08/2023 12:39:09 10/08/19 24 10/08/2023 rapid flu (A+B) Unknown Analyte negati ve Not Available pam zurita [address] [place], [address], 10/08/2023 12:10:58 10/08/19 24 10/08/2023 rapid flu (A+B) Unknown Analyte negati ve Not Available pam zurita [address] [place], [address], 10/08/2023 12:10:58 10/08/19 24 10/08/2023 rapid flu (A+B) Unknown Analyte yes Not Available [address] moss [address] [place], [address], 10/08/2023 12:10:58 10/08/19 24 10/08/2023 SARS CoV 2 (COVI D-19) Ag, QL, IA, upper respi rator y speci men Unknown Analyte negati ve Not Available [facility] [facility] [facility] [address] [place], [address], 10/08/2023 12:10:53 10/08/19 24 10/08/2023 SARS CoV 2 (COVI D-19) Ag, QL, IA, upper respi rator y speci men Unknown Analyte yes Not Available _ [facility] [address] [place], [address], 10/08/2023 12:10:53 Result Notes None recorded. Problems No Known Problems Medical Equipment None Reported. Allergies Allergen ID Allergen Name Allergen Category Reaction Reaction Severity Criticality Documentation Date Start Date Code Code System Note Provider Name and Address Organization Details Recorded Time 082192 Product containin g penicilli n (product) medicatio n Not available Not available Not available 02/12/2023 69297 8001 SNOMED ALVIN Kat [facility] 16:38:39 882341 amoxicill in medicatio n Not available Not available Not available 10/08/2023 723 RxNorm ALVIN Hickey [facility] 4 12:09:51 Medications Name Sig Start Date Stop Date Status Note LastModified by Organization Details LastModified Time benzonatate 200 mg capsule Take 1 capsule 3 times a day by oral route as needed for 7 days, for cough. 2023 active Not Available Not Available Not Avai lable valacyclovir 1 gram tablet Take 1 tablet every 12 hours by oral route as directed for 10 days, for infection . 2023 active Not Available Not Available Not Avai lable Vitals Date Recorded Body height Body mass index (BMI) Body weight Oxygen saturation Oxygen saturation in Arterial blood by Pulse oximetry Heart rate Respiratory rate Body temperature Systolic blood pressure Diastolic blood pressure Provider Name and Address Organization Details Last Updated DateTime 4 162.56 cm 24 kg/m2 68008.9 3 g 99 % 99 % 78 /min 18 /min 97.3 [degF] 109 mm[Hg] 66 mm[Hg] Michelle Lazcano PA - [facility] 4 16:40:14 Date Recorded Body height Body mass index (BMI) Body weight Oxygen saturation Oxygen saturation in Arterial blood by Pulse oximetry Heart rate Respiratory rate Body temperature Systolic blood pressure Diastolic blood pressure Provider Name and Address Organization Details Last Updated DateTime 4 162.56 cm 24 kg/m2 08828.9 3 g 99 % 99 % 100 /min 18 /min 100.3 [degF] 118 mm[Hg] 81 mm[Hg] Yolanda Pache[employer] - [employer] [facility] [employer] [facility] 4 12:11:50 Social History Question Answer Notes LastModified by [employer] Details LastModified Time Tobacco Smoking Status Never Smoker Michelle xavier PA - [facility] 02/12/2023 16:39:34 Have You Had A Flu Shot This Season? No Information not available 02/12/2023 What Is Your Relationship Status? Information not available 02/12/2023 Have You Recently Traveled Abroad? No Information not available 02/12/2023 Are You Currently In School? No Information not available 02/12/2023 Sex: Unknown Functional Status Question Answer Note LastModified by [employer] Details LastModified Time Do you use any illicit or recreational drugs? No Information not available 02/12/2023 Do you or have you ever used any other forms of tobacco or nicotine? No Information not available 02/12/2023 What is your level of alcohol consumption? Occasional Information not available 02/12/2023 Are you currently employed? Yes Information not available 02/12/2023 Mental Status None recorded. Family History Relationship Description Onset Age of this Age Resolved Age Notes LastModified by Organization Details LastModified Time Father No current problems or disability Not available 02/12 16:39:23 Mother No current problems or disability Not available 02/12 16:39:23 Medical History No medical history recorded. Gynecological History Statement/Question Response Date of LMP 09/06/2023 Is there any chance of ? No LMP Definite Obstetrics History GPAL:G 0 P 0 0 0 0 Past Encounters Encounter ID Performer Location Encounter Start Date Encounter Closed Date Diagnosis/Indication Diagnosis SNOMED-CT Code Diagnosis ICD10 Code Diagnosis Note [id number] ALVIN HUITRON [address] [place] [address] 02/12/2023 16:00:58 02/12/2023 17:11:18 Persistent cough 593590008 R05.3 Acute bronchitis 3243936 2 J20.9 Acute bronchitis is a common clinical condition characteri zed by an acute onset but persistent cough, with or without sputum production . It is typically self-limit ed, resolving within one to three weeks. Symptoms result from inflammati on of the lower respirator y tract and are most frequently due to viral infection. Treatment is focused on patient education and supportive care. Antibiotic s are not needed for the great majority of patients with acute bronchitis but are greatly overused for this condition. Reducing antibiotic use for acute bronchitis is a national and internatio [facility] health care priority. In most patients, the cough persists for 1 to 3 weeks, with an average duration of 18 days. The cough may be associated with either purulent or nonpurulen t sputum production The presence of purulent sputum is a nonspecifi c finding and does not appear to be predictive of bacterial infection or that antibiotic s are needed. For the great majority of patients, use of antibiotic s does not hasten recovery or prevent complicati ons but puts patients at increased risk of adverse effects including potentiall y severe complicati ons such as Clostridio ides difficile infection and anaphylaxi s. Non-Pharma cological treatment for coughin . Throat lozenges2. Hot tea3. Honey4. Smoking cessation5 . Avoidance of secondhand smoke. Pharmacolo gical Treatment: 1. Robatussin or Guafenasin 2. Antihistam ines3. Dextrometh oraphen I would plan on being seen again if any of the following symptoms develop:1. Fever (100.5)2. Shortness of breath3. Wheezing4. Worsening Cough. I would go to the ER if you develop:1. Severe Shortness of breath2. Chest Pain3. Wheezing4. Coughing up Blood [id number] [place] [address] [place] [address] 10/08/2023 11:50:31 10/08/2023 13:34:32 Fever 996180651 R50.9 Genital he rpes simplex 25393593 A60.9 Dry cough 74047840 R05.9 CoughBlack Elderberry Syrup:1-2 tsp 2-3 times a day for 5 days as needed for coughing.S ambucol Black Elderberry Original Syrup (available at [employer] )[employer] Black Elderberry Syrup, 5.4-Ounce Bottle (available at [employer]) Use a cool mist humidifier in the room that you sleep to add moisture to the air, which should soothe the airways and help loosen any mucus that may be present. Health Concerns Section Related Observation LastModified by Organization Detai ls LastModified Time None Recorded Concern Status LastModified by Organization Details LastModified Time None Recorded Advance Directives Directive None Recorded Payers Insurance Date Sequence Insurance Name Policy Number Policy Gutierrez Covered Member ID Gutierrez Member ID Guarantor Name 02/12/[address] [facility] () Robert Molina [id number] Дмитрий Molina 10/11/[address] [facility] () Дмитрий Molina [id number] Дмитрий Molina 02/12/[address] [facility] () Robert Molina [id number] Дмитрий Molina Notes Date Note Type Note Provider Name and Address Organization Details Recorded Time 4 text/html Upper Respiratory Symptoms UCReported bypatient.Source of patient informationInformation obtained from patient; Patient arrived at Urgent Care ambulatory Quality:dry cough Severity:mild Onset/Timing:Date of Symptoms Onset: (3 weeks ago) Context:no sick contacts; no foreign travel; non-smoker Modifying Factors:OTC medication (none) Associated Symptoms:no fever; no sore throat; no sputum production; no shortness of breath; no wheezing ALVIN HUITRON [address] [place], [address], [place] - [facility] 02/12/2023 17:53:08 4 text/html 28 yo female c/o of 4 day hx of body aches, and fever (Gpcf=984.0), sweating all night, coughing, chest congestion, mucus sometimes yellow or clear, deep breaths hurt. She also states she has new painful sores in her vaginal area. LATANYA REYNOLDS MD [address] [place], [address], [place] - [facility] 10/08/2023 15:03:20 OBGyn Episode No OBEpisode recorded.
== END 2024-07-27 11:51 | disposition home or self-care (01) ==
LOC: HO.HMCC 11:02
PROVIDERS: PCP Nurse Practitioner Family; Visit Provider Nurse Practitioner Family
DX: Z00.00 Encounter for general adult medical examination without abnormal findings (principal); Z82.69 Family history of other diseases of the musculoskeletal system and connective tissue; K59.00 Constipation, unspecified

== ENCOUNTER → 2024-07-27 11:02 | Outpatient (BNVA) | payer OTHER, SELFPAY | PROVIDERS: PCP Nurse Practitioner Family; Visit Provider Nurse Practitioner Family | DX: Z00.00 Encounter for general adult medical examination without abnormal findings (principal); K59.00 Constipation, unspecified; Z82.69 Family history of other diseases of the musculoskeletal system and connective tissue | CPT/HCPCS: 96127 ==

== ENCOUNTER 2024-07-28 09:56 | Outpatient (REF) | payer OTHER, SELFPAY ==
[2024-07-28 13:16] LABS: MANUAL DIFF FLAG NO
[2024-07-28 13:16] LABS: Appearance Urine Cloudy; Color Urine Yellow; Glucose Urine UA Negative (Negative); Leukocyte Esterase Urine Negative (Negative); Nitrite Urine Negative (Negative); Urine Blood Negative (Negative); Urine Ketones Negative (Negative); Urine Protein Trace mg/dL (Neg-Trace)
[2024-07-28 13:33] LABS: Basophils Percent Auto 0.2 % (0-2); Eosinophils Absolute Auto 0.1 X10*3/uL (0.0-0.4); Eosinophils Percent Auto 1.1 % (0-4); Hematocrit 35.8 % (37.0-47.0); Imm Gran Abs Auto 0.01 X10*3/uL (0.00-0.03); Imm Gran Pct Auto 0.2 % (0.0-0.4); Lymphocytes Absolute Auto 1.7 X10*3/uL (1.2-4.9); Lymphocytes Percent Auto 31.1 % (20-40); Mean Corpuscular HGB Conc 33.5 g/dl (31.0-35.0); Mean Corpuscular Hemoglobin 30.7 pg (27.0-33.0); Mean Corpuscular Volume 91.6 fL (80.0-98.0); Mean Platelet Volume 10.2 fL (9.4-12.3); Monocytes Absolute Auto 0.4 X10*3/uL (0.1-1.2); Monocytes Percent Auto 8.2 % (2-11); Neutrophils Absolute Auto 3.2 x10*3/uL (2.0-8.3); Neutrophils Percent Auto 59.2 % (45-73); Platelet Count 246 X10*3/uL (160-400); Red Blood Count 3.91 X10*6/uL (4.20-5.50); Red Cell Distribution Width 12.7 % (11.0-16.0); White Blood Count 5.3 X10*3/uL (4.8-10.8)
[2024-07-28 13:38] LABS: Rheumatoid Factor < 13.0 IU/mL (<15.0)
[2024-07-28 13:47] LABS: Alanine Aminotransferase 29 U/L (0-31); Alkaline Phosphatase 55 U/L (39-117); Anion Gap 9 (12-20); Aspartate Amino Transferase 29 U/L (5-31); Bilirubin Total 0.8 mg/dL (0.0-1.0); Blood Urea Nitrogen 11 mg/dL (9-16); Calcium 9.3 mg/dL (8.4-10.2); Carbon Dioxide 26 mmol/L (22-29); Chloride 109 mmol/L (96-108); Cholesterol 190 mg/dL (<200); Estimated Glomerular Filt Rate > 60; Glucose Fasting 89 mg/dL (60-99); HDL Cholesterol 62 mg/dL (>40); LDL Cholesterol Calculated 115 mg/dL (<100); Sodium 140 mmol/L (135-145); Total Protein 7.9 g/dL (6.5-8.0); Triglycerides 68 mg/dL (<150)
[2024-07-28 14:08] LABS: TSH reflex Free T4 2.28 uIU/mL (0.32-4.0)
[2024-07-29 07:14] LABS: Lyme Abs Screen <0.90 index
[2024-07-29 14:53] LABS: Anti DNA DS Antibody 1 IU/mL
[2024-07-29 17:45] LABS: Complement C3 134 mg/dL (83-193)
[2024-07-30 02:18] LABS: A. Phagocytphilium DNA,RT-PCR NOT DETECTED (NOT DETECTED); Babesia Microti DNA, RT-PCR NOT DETECTED (NOT DETECTED); Borrelia Miyamotoi,DNA RT-PCR NOT DETECTED (NOT DETECTED); E.Chaffeensis DNA RT-PCR NOT DETECTED (NOT DETECTED); Lyme(Borrelia ssp)DNA RT-PCR NOT DETECTED (NOT DETECTED)
[2024-07-31 11:57] LABS: ANA Titer 2 1:40 titer; Anti Nuclear Antibody Pattern Nuclear, Homogeneous; Anti Nuclear Antibody Screen POSITIVE (NEGATIVE)
[2024-07-31 14:24] LABS: Cyclic Citrullinated Peptide <16 UNITS
[2024-08-01 08:49] LABS: DNAds, Crithidia Antibody Negative (Negative)
== END 2024-07-28 09:57 | disposition home or self-care (01) ==
LOC: HO.HMGCLDS 09:56
PROVIDERS: PCP Nurse Practitioner Family; Visit Provider Nurse Practitioner Family
DX: Z00.00 Encounter for general adult medical examination without abnormal findings (principal); Z82.69 Family history of other diseases of the musculoskeletal system and connective tissue
CPT/HCPCS: 36415; 80053; 80061; 81003; 84443; 85025; 86038; 86039; 86160; 86200; 86225; 86255; 86431; 86617; 86618; 87468; 87469; 87478; 87484; 87798